=== PATIENT | male | born 1965 ===

== ENCOUNTER 2016-11-28 09:16 | Emergency (ER) | payer OTHER ==
[2016-11-28 09:36] VITALS: O2SAT 98
--- NOTE | 2016-11-28 10:38 | C.PDOC ---
History Of Present Illness Pt c/o burning sensation in anal area. Time Seen by Provider: 11/28/16 10:25 History Per: Patient Onset/Duration Of Symptoms: Days (about 2 weeks) Current Symptoms Are (Timing): Still Present Severity: Moderate Location Of Pain/Discomfort: Other (l) Radiation Of Pain To:: None Quality Of Discomfort: Burning Alleviating Factors: None Additional History Per: Prior Records Past Medical History Reviewed: Historical Data, Nursing Documentation, Vital Signs Vital Signs: Last Vital Signs Temp 97.9 F 11/28/16 09:35 Pulse 62 11/28/16 09:35 Resp 18 11/28/16 09:35 BP 131/66 11/28/16 09:35 Pulse Ox 98 11/28/16 09:35 - Medical History PMH: No Chronic Diseases Surgical History: No Surg Hx Family History: States: Unknown Family Hx - Social History Hx Alcohol Use: No Hx Substance Use: No - Immunization History Hx Tetanus Toxoid Vaccination: No Hx Influenza Vaccination: No Hx Pneumococcal Vaccination: No Review Of Systems Except As Marked, All Systems Reviewed And Found Negative. Constitutional: Negative for: Fever, Weakness Cardiovascular: Negative for: Chest Pain Respiratory: Negative for: Shortness of Breath Gastrointestinal: Positive for: Rectal Pain (burning). Negative for: Vomiting, Abdominal Pain, Diarrhea, Constipation, Melena, Hematochezia, Hematemesis Genitourinary: Negative for: Dysuria Musculoskeletal: Negative for: Neck Pain, Back Pain Skin: Negative for: Rash Neurological: Negative for: Weakness, Numbness, Seizures, Altered Mental Status Physical Exam - Physical Exam Appears: Non-toxic, No Acute Distress Skin: Normal Color, Warm, Dry, No Rash Head: Atraumatic, Normacephalic Eye(s): bilateral: PERRL, EOMI Neck: Normal ROM, Supple Cardiovascular: Rhythm Regular Respiratory: Normal Breath Sounds, No Accessory Muscle Use Gastrointestinal/Abdominal: Soft, No Tenderness Rectal: Rectal Tone (wnl), No Mass Back: No CVA Tenderness Extremity: Normal ROM Neurological/Psych: Oriented x3, Normal Motor, Normal Sensation ED Course And Treatment O2 Sat by Pulse Oximetry: 98 Pulse Ox Interpretation: Normal Disposition Counseled Patient/Family Regarding: Diagnosis, Need For Followup, Rx Given - Disposition Referrals: [facility] [Outside] Disposition: HOME/ ROUTINE Disposition Time: 10:35 Condition: STABLE Additional Instructions: Follow up in the clinic for further evaluation and treatment. Return to the ER if you develop fever, abdominal pain, worsening of symptoms or if you have any other concerns. Prescriptions: Hydrocortisone 2.5% (Rectal) [Anusol-Hc] 1 appl RC BID PRN #1 tube PRN Reason: Itching / Pruritus Docusate [Colace] 100 mg PO BID PRN #60 cap PRN Reason: Constipation Instructions: Anal Itching (ED) Print Language: L[place]ISH - Clinical Impression Clinical Impression: Anal burning
[2016-11-28 10:54] VITALS: BP 128/72; PULSE 68; RESP 17; TEMP 98.2
== END 2016-11-28 10:54 | disposition home or self-care (01) ==
LOC: C.ER 09:16
DX: K62.89 Other specified diseases of anus and rectum (principal)